=== PATIENT | female | born 1965 | race Caucasian/White ===

== ENCOUNTER → 2017-04-06 | Outpatient (CLI) | payer BC, OTHER | LOC: WI 09:26 | PROVIDERS: ATTEND Nurse Practitioner | DX: Z12.31 Encounter for screening mammogram for malignant neoplasm of breast (principal); M85.80 Other specified disorders of bone density and structure, unspecified site | CPT/HCPCS: 77080; G0202; 77067 ==

== ENCOUNTER → 2017-04-14 | Outpatient (CLI) | payer BC, OTHER | LOC: WI 07:45 | PROVIDERS: ATTEND Nurse Practitioner | DX: R22.2 Localized swelling, mass and lump, trunk (principal) | CPT/HCPCS: 76700; 93976 ==